=== PATIENT | female | born 1940 | race Caucasian/White ===

== ENCOUNTER 2025-05-18 08:29 | Emergency (ER) | payer OTHER, SELFPAY ==
--- OUTSIDE RECORDS SUMMARY | 2025-05-04 02:28 | XMS_ITS | Continuity of Care Document ---
Author Organization [facility] Address [address] [place] [address] Phone Care Team Providers Care Audience Development Manager Name Role Phone Erick Michaels MD Unavailable Vicenta vailable Allergies, Adverse Reactions, Alerts Substance Reaction Status Criticality No Known Allergies Active No Inform ation Medications Medication Instructions Dosage Effective Dates (start - stop) Status Comments ATORVASTATIN 10MG TABLETS TAKE 1 TABLET BY MOUTH EVERY DAY - Active multivitamin tablet take 1 tablet by oral route every day with food - Active Aspir-81 81 mg tablet,delayed release take 1 Tablet by oral route 2-3 times weekly - Active Joint Health 40 mg-10 mg-5 mg-3.3 mg tablet once daily - Active Healthy Eyes 300 mcg-200 mg-27 mg-2 mg tablet once daily - Active Vitamin D3 25 mcg (1,000 unit) capsule take 1 Capsule by Oral route every day 1 Capsule - Active ATORVASTATIN 10MG TABLETS TAKE 1 TABLET BY MOUTH EVERY DAY - No Longer Active Procedures Procedure Date MED LIST DOCD IN RCRD FALL RISK ASSESSMENT DOC'D PRES/ABSN URINE INCON ASSESS Admin influenza virus vac FLU VACC PRSV FREE INC ANTIG OFFICE [id number] BODY MASS INDEX DOCD SYST BP LT 130 MM HG DIAST BP < 80 MM HG COMPREHEN METABOLIC PANEL CMP LIPID PANEL ROUTINE VENIPUNCTURE MED LIST DOCD IN RCRD FALL RISK ASSESSMENT DOC'D PRES/ABSN URINE INCON ASSESS Pt inelig neg scrn depres OFFICE [id number] BODY MASS INDEX DOCD SYST BP GE 130 - 139MM HG DIAST BP < 80 MM HG Kept Appointment No Charge Encounter Mar Admin influenza virus vac RIV3 VACCINE NO PRESERV IM OFFICE [id number] BODY MASS INDEX DOCD SYST BP LT 130 MM HG DIAST BP < 80 MM HG COMPREHEN METABOLIC PANEL CMP LIPID PANEL ROUTINE VENIPUNCTURE Pt inelig neg scrn depres FALL RISK ASSESSMENT DOC'D PRES/ABSN URINE INCON ASSESS OFFICE [id number] BODY MASS INDEX DOCD SYST BP GE 130 - 139MM HG DIAST BP 80-89 MM HG FALL RISK ASSESSMENT DOC'D PRES/ABSN URINE INCON ASSESS PPPS, subseq visit BODY MASS INDEX DOCD SYST BP GE 130 - 139MM HG DIAST BP < 80 MM HG CBC, INC PLATELETS AND DIFFERENTIAL COMPREHEN METABOLIC PANEL CMP 3 LIPID PANEL URINALYSIS W MICROSCOPIC (UA) 3 ROUTINE VENIPUNCTURE Admin influenza virus vac Flu Vac, quad (RIV4), Preservative And A ntibiotic Free IM FALL RISK ASSESSMENT DOC'D Pt inelig neg scrn depres PPPS, subseq visit BODY MASS INDEX DOCD SYST BP LT 130 MM HG DIAST BP < 80 MM HG COMPREHEN METABOLIC PANEL CMP 2 LIPID PANEL ROUTINE VENIPUNCTURE IL Pt inelig neg scrn depres FALL RISK ASSESSMENT DOC'D PRES/ABSN URINE INCON ASSESS Admin influenza virus vac Flu Vac, quad (RIV4), Preservative And A ntibiotic Free IM OFFICE [id number] BODY MASS INDEX DOCD SYST BP LT 130 MM HG DIAST BP < 80 MM HG DSCHRG MED/CURRENT MED MERGE DSCHRG MED/CURRENT MED MERGE Pt inelig neg scrn depres FALL RISK ASSESSMENT DOC'D PRES/ABSN URINE INCON ASSESS CBC, INC PLATELETS AND DIFFERENTIAL COMPREHEN METABOLIC PANEL CMP 0 LIPID PANEL ROUTINE VENIPUNCTURE PPPS, subseq visit BODY MASS INDEX DOCD SYST BP LT 130 MM HG DIAST BP < 80 MM HG Additional supplies, materials, & Clinic al Staff Time During A PHE Admin influenza virus vac Flu Vac, quad (RIV4), Preservative And A ntibiotic Free IM Pt inelig neg scrn depres FALL PLAN OF CARE DOC'D URINE INCON PLAN DOC'D PRES/ABSN URINE INCON ASSESS PNEUMOVAX ADM MEDICARE PNEUMOCOCCAL CONJUGATE VACCINE, 13 VÍCTOR T, IM PPPS, initial visit BODY MASS INDEX DOCD SYST BP LT 130 MM HG DIAST BP < 80 MM HG CBC, INC PLATELETS AND DIFFERENTIAL COMPREHEN METABOLIC PANEL CMP 9 LDL-CHOLESTEROL, DIRECT VITAMIN D, 25-HYDROXY ROUTINE VENIPUNCTURE Admin influenza virus vac FLU VAC NO PRSV 4 MELO, 0.5mL DOSAGE Advance Directives Directive Yes / No Effective Date File Name No Information Encounters Encounter Description Practice Location Reason(s) For Visit Diagnoses Date Provider Providers Copied on Encounter [facility], [address], [place], [place], [address] , [place] tel: [phone] [facility] No Information 5 Brando Walters. [address], [place] [address], [place], [place], [address], [place]. tel:[phone] OFFICE [id number]-LG [facility], [address], [place], [place], [address] , [place] tel:[phone] [facility] Chronic Conditions (chief complaint) Body mass index [BMI] 19.9 or less, adultAtherosc lerosis of aortaHistory of malignant neoplasm of breastGeneral ized osteoarthriti sMixed hyperlipidemi aOsteopenia after menopausePain , joint, shoulder, rightPelvic floor dysfunction 5 Brando Walters. [address], [place] [address], [place], [place], [address], [place]. tel:[phone] Referring Provider: Erick paz, [address] [place] [address], [place], [address] . tel:[phone] [facility], [address], [place], [place], [address] , [place] [phone] [facility] No Information 5 Brando Walters. [address], [place] [address], [place], [place], [address], [place]. tel:[phone] OFFICE [id number]-UG [facility], [address], [place], [place], [address] , tel:[phone] [facility] follow up (chief complaint) Body mass index [BMI] 20.0-20.9, adultOsteopen ia after menopauseActi yesica keratosisGene ralized osteoarthriti sUterine prolapseAther osclerosis of aortaPure hypercholeste rolemia, unspecifiedHi story of malignant neoplasm of breastVaccine counseling 5 Brando Walters. [address] [place] [address], [place] [address], [place], [place], [address], [place]. [phone] Referring Provider: Erick paz, [facility] [address], [place], [address] . tel:[phone] [facility], [address], [place], [place], [address] , [place] tel: [phone] [facility] UA (chief complaint) No Information 4 Lizeth Glass. [address] [place] [address], [id number], [place]. tel:[phone] Referring Provider: Quan Stanley , [address] [place] [address], [address] . tel:[phone] [facility], [address], [place], [place], [address] , [place] tel:[phone] Administratio n Hematuria, unspecified type 4 Lizeth Glass. [address] [place] [address], [id number], [place]. tel:[phone] [facility], [address], [place], [place], [address] , [place] [phone] [facility] Hematuria, unspecified type 4 Lizeth Glass. [address] [place] [address], [id number], [place]. tel:[phone] Referring Provider: Quan Stanley , [address] [place] [address], [address] . tel:[phone] OFFICE FZFIB-CDU-ON PANDSHREYA [facility], [address], [place], [place], [address] , tel:[phone] [facility] Chronic Conditions (chief complaint)b ereavement (chief complaint) Atheroscleros is of aortaPure hypercholeste rolemia, unspecifiedUn ilateral primary osteoarthriti s, right hipBody mass index [BMI] 19.9 or less, adultEncounte r for immunization 4 Lizeth Glass. [address] [place] [address], [id number], . tel:[phone] Referring Provider: Quan Stanley , [address] [place] [address], [address] . tel:[phone] OFFICE [id number]-GF [facility], [address], [place], [place], [address] , tel:[phone] [facility] Chronic Conditions (chief complaint) Unilateral primary osteoarthriti s, right hipSquamous cell carcinoma of skin, unspecifiedBo dy mass index [BMI] 20.0-20.9, adult 4 Lizeth Glass. [address] [place] [address], [id number], . tel:[phone] Referring Provider: Quan Stanley , [address] [place] [address], [address] . tel:[phone] [facility], [address], [place], [place], [address] , tel:[phone] [facility] Medicare preventive (chief complaint)C hronic Conditions (chief complaint)c hronic conditions (chief complaint) Encntr for general adult medical exam w/o abnormal findingsAther osclerosis of aortaPure hypercholeste rolemiaOther specified disorders of bone density and structure, unspecified siteNonalcoho lic steatohepatit is (GONZALEZ)Skin changeHistory of malignant neoplasm of breastRight hip painUrinary incontinence, unspecified typeBody mass index [BMI] 19.9 or less, adult 3 Lili Yu. [address], [place], [place], [address], [place]. tel:[phone] Referring Provider: Quan Stanley , [address] [place] [address], [address] . tel:[phone] [facility], [address], [place], [place], [address] , [place] tel:[phone] [facility] flu vaccine (chief complaint) No Information 2 Lizeth Glass. [address] [place] [address], [id number], [place]. [phone] Referring Provider: Quan Stanley , [address] [place] [address], [address] . tel:[phone] [facility], [address], [place], [place], [address] , [place] tel:[phone] [facility] Medicare preventive (chief complaint)C hronic Conditions (chief complaint) Body mass index [BMI] 20.0-20.9, adultAtherosc lerosis of aortaHistory of malignant neoplasm of breastEncount er for adult health maintenance exam without abnormal findingActini c keratosisPure hypercholeste rolemia, unspecified 2 Lizeth Glass. [address] [place] [address], [id number], [place]. tel:[phone] Referring Provider: Quan Stanley , [address] [place] [address], [address] . tel:[phone] [facility], [address], [place], [place], [address] , [place] tel:[phone] Administratio n No Information 2 Lizeth Glass. [address] [place] [address], [id number], [place]. tel:[phone] OFFICE [id number]-FN TAILED [facility], [address], [place], [place], [address] , [place] tel:[phone] [facility] Rash (chief complaint)C hronic Conditions (chief complaint) Body mass index [BMI] 19.9 or less, adultDermatit isAtheroscler osis of aortaPure hypercholeste rolemia, unspecifiedBo dy mass index [BMI] 20.0-20.9, adult Mar- 1 Lili Yu. [address], [place], [place], [address], [place]. tel:[phone] Referring Provider: Quan Stanley , [address] [place] [address], [address] . tel:[phone] [facility], [address], [place], [place], [address] , tel: [phone] [facility] No Information 1 Lizeth Glass. [address] [place] [address], [id number], . tel:[phone] Referring Provider: Quan Stanley , [address] [place] [address], [address] . tel:[phone] [facility], [address], [place], [place], [address] , tel: [phone] [facility] No Information 1 Lizeth Glass. [address] [place] [address], [id number], . tel:[phone] Referring Provider: Quan Stanley , [address] [place] [address], [address] . tel:[phone] [facility], [address], [place], [place], [address] , [place] tel:[phone] [facility] Polyosteoarth ritis, unspecified 1 Lizeth Glass. [address] [place] [address], [id number], . tel:[phone] [facility], [address], [place], [place], [address] , tel:[phone] [facility] No Information 1 Lizeth Glass. [address] [place] [address], [id number], . tel:[phone] [facility], [address], [place], [place], [address] , tel: [phone] [facility] follow up (chief complaint)M edicare preventive (chief complaint)C hronic Conditions (chief complaint) Body mass index (BMI) 20.0-20.9, adultPolyoste oarthritis, unspecifiedAt herosclerosis of aortaHistory of malignant neoplasm of breastEncount er for general adult medical examination without abnormal findingsImmun ization counseling 0 Lizeth Glass. [address] [place] [address], [id number], . tel:[phone] Referring Provider: Quan Stanley , [address] [place] [address], [address] . tel:[phone] [facility], [address], [place], [place], [address] , tel:[phone] [facility] Encounter for screening for malignant neoplasm of colon 0 Lizeth Glass. [address] [place] [address], [id number], . tel:[phone] Referring Provider: Quan Stanley , [address] [place] [address], [address] . tel:[phone] [facility], [address], [place], [place], [address] , [place] tel:[phone] [facility] No Information 0 Lizeth Glass. [address] [place] [address], [id number], [place]. tel:[phone] Referring Provider: Quan Stanley , [address] [place] [address], [address] . tel:[phone] [facility], [address], [place], [place], [address] , tel:[phone] [facility] Medicare preventive (chief complaint)C hronic Conditions (chief complaint) Encounter for general adult medical examination without abnormal findingsEncou nter for immunizationA therosclerosi s of aortaFatty liverOsteopen ia, unspecified locationPure hypercholeste rolemiaHistor y of malignant neoplasm of breastPrimary osteoarthriti s involving multiple joints 9 Lili Aimee. [address] [place] [address], [place], [place], [address], [place]. tel:[phone] Referring Provider: Quan Stanley , [address] [place] [address], [address] . tel:[phone] [facility], [address], [place], [place], [address] , [place] tel: [phone] [facility] No Information 9 Lizeth Glass. [address] [place] [address], [id number], [place]. tel:[phone] Referring Provider: Quan Stanley , [address] [place] [address], [address] . tel:[phone] [facility], [address], [place], [place], [address] , [place] tel:[phone] [facility] Body mass index (BMI) 21.0-21.9, adultPolyoste oarthritis, unspecified 9 Lili Yu. [address], [place] [address], [place], [place], [address], [place]. tel:[phone] Referring Provider: Quan Stanley , [address] [place] [address], [address] . tel:[phone] [employer] [facility], [address], [place], [place], [address] , [place] tel:[phone] [facility] Body mass index (BMI) 21.0-21.9, adult Fe 9 Lili Yu. [address], [place] [address], [place], [place], [address], [place]. tel:[phone] Referring Provider: Quan Stanley , [address] [place] [address], [address] . tel:[phone] [facility], [address], [place], [place], [address] , tel:[phone] [facility] No Information 0 8 Lizeth Glass. [address] [place] [address], [id number], . [phone] Referring Provider: Quan Stanley , [address] [place] [address], [address] . tel:[phone] [facility], [address], [place], [place], [address] , tel:[phone] [facility] Left hip painPrimary osteoarthriti s, right shoulder 8 Lizeth Glass. [address] [place] [id number], . [phone] [facility], [address], [place], [place], [address] , tel:[phone] [facility] Body mass index (BMI) 20.0-20.9, adultPrimary osteoarthriti s, right shoulderLeft hip pain 8 Lizeth Glass. [address] [place] [address], [id number], . tel:[phone] Referring Provider: Quan Stanley , [address] [place] [address], [address] . tel:[phone] [facility], [address], [place], [place], [address] , tel:[phone] [facility] Polyosteoarth ritis, unspecifiedAt herosclerosis of aortaPersonal history of malignant neoplasm of breast 8 Lizeth Glass. [address] [place] [address], [id number], . tel:[phone] Referring Provider: Quan Stanley , [address] [place] [address], [address] . tel:[phone] [facility], [address], [place], [place], [address] , tel: [phone] [facility] No Information Lizeth Glass. [address] [place] [address], [id number], . tel:[phone] Referring Provider: Quan Stanley , [address] [place] [address], [address] . tel:[phone] [facility], [address], [place], [place], [address] , tel: [phone] [facility] Other specified disorders of bone density and structure, unspecified siteAtheroscl erosis of aortaPolyoste oarthritis, unspecified Lizeth Glass. [address] [place] [address], [id number], . tel:[phone] Referring Provider: Quan Stanley , [address] [place] [address], [address] . tel:[phone] [facility], [address], [place], [place], [address] , tel: [phone] [facility] Osteoporosis screening Lizeth Glass. [address] [place] [address], [id number], . tel:[phone] [facility], [address], [place], [place], [address] , [place] tel: [phone] [facility] Pneumonia of left lower lobe due to infectious organismAther osclerosis of aortaFemale bladder prolapseDerma titisPost-tanner al dripMyalgia Lili Yu. [address] [facility], [place], [place], [address], [place]. tel:[phone] Referring Provider: Quan Stanley , [address] [place] [address], [address] . tel:[phone] [facility], [address], [place], [place], [address] , tel: [phone] [facility] Pneumonia of left lower lobe due to infectious organismAther osclerosis of aorta Dec-2 0-201 6 Lizeth Glass. [address] [place] [address], [id number], [place]. tel:[phone] Referring Provider: Quan Stanley , [address] [place] [address], [address] . tel:[phone] [facility], [address], [place], [place], [address] , tel: [phone] [facility] Pneumonia of left lower lobe due to infectious organismFemal e bladder prolapseSkin yeast infection May-0 6-201 6 Lili Yu. [address] [facility], [place], [place], [address], [place]. tel:[phone] Referring Provider: Quan Stanley , [address] [place] [address], [address] . tel:[phone] [facility], [address], [place], [place], [address] , [place] tel:[phone] [facility] Cough May-0 5-201 6 Lizeth Glass. [address] [place] [address], [id number], [place]. tel:[phone] [facility] [address], [place], [place], [address] , [place] tel:[phone] [facility] Periumbilical abdominal painHematuria Apr-0 8-201 6 Lili Yu. [address] [facility], [place], [place], [address], [place]. tel:[phone] Referring Provider: Quan Stanley , [address] [place] [address], [address] . tel:[phone] [facility], [address], [place], [place], [address] , tel: [phone] [facility] Abnormal screening mammogram 0- 6 Lizeth Glass. [address] [place] [address], [id number], . [phone] Referring Provider: Quan Stanley , [address] [place] [address], [address] . tel:[phone] [facility], [address], [place], [place], [address] , tel: [phone] [facility] Urinary frequency Apr- 5 Lizeth Glass. [address] [place] [address], [id number], . tel:[phone] Referring Provider: Quan Stanley , [address] [place] [address], [address] . tel:[phone] [facility], [address], [place], [place], [address] , tel: [phone] [facility] Encntr for general adult medical exam w/o abnormal findingsEncou nter for immunizationP rimary osteoarthriti s, unspecified site 2 5 Lizeth Glass. [address] [place] [address], [id number], . tel:[phone] Referring Provider: Quan Stanley , [address] [place] [address], [address] . tel:[phone] [facility], [address], [place], [place], [address] , [place] tel: [phone] [facility] Screening for malignant neoplasm of colon Feb-- 5 Lizeth Glass. [address] [place] [address], [id number], . tel:[phone] [facility], [address], [place], [place], [address] , [place] tel: [phone] [facility] Routine general medical examination at a [facility] hypercholeste rolemia 4 Lizeth Glass. [address] [place] [address], [id number], [place]. tel:[phone] Referring Provider: Quan Stanley , [address] [place] [address], [address] . tel:[phone] [facility], [address], [place], [place], [address] , [place] tel: [phone] [facility] No Information 3 Lizeth Glass. [address] [place] [address], [id number], [place]. tel:[phone] [facility], [address], [place], [place], [address] , [place] tel: [phone] [facility] Routine general medical examination at a [facility] hypercholeste rolemiaRoutin e general medical examination at a health care facility 3 Lizeth Glass. [address] [place] [address], [id number], [place]. tel:[phone] Referring Provider: Quan Stanley , [address] [place] [address], [address] . tel:[phone] [facility], [address], [place], [place], [address] , [place] tel: [phone] [facility] No Information 2 Kamar Arroyo. [address], [place], [place], [address]. tel:[phone] [facility], [address], [place], [place], [address] , [place] tel: [phone] [facility] No Information 2 Lizeth Glass. [address] [place] [address], [id number], [place]. tel:[phone] [facility], [address], [place], [place], [address] , [place] tel: [phone] [facility] Routine general medical examination at a health care facilityPure hypercholeste rolemiaRoutin e general medical examination at a health care facilityNeed for prophylactic vaccination and inoculation against streptococcus pneumoniae [pneumococcus ]NEED FOR PROPHYLACTIC VACCINATION WITH COMBINED DIPHTHERIA-TE TANUS-PERTUSS IS (DTP) (DTAP) VACCINE 2 Lizeth Glass. [address] [place] [address], [id number], . [phone] Referring Provider: Quan Stanley , [address] [place] [address], [address] . tel:[phone] [facility], [address], [place], [place], [address] , tel: [phone] [facility] No Information 1 Kamar Arroyo. [address], [place], [place], [address]. [phone] [facility], [address], [place], [place], [address] , [place] tel: [phone] [facility] PURE HYPERCHOLESTE ROLEMOSTEOPOR OSIS NOSROUTINE MEDICAL EXAM 9 Lizeth Glass. [address] [place] [address], [id number], . tel:[phone] [facility], [address], [place], [address] , tel: [phone] [facility] LOWER LEG INJURY NOSSEBACEOUS CYST 5 Lizeth Glass. [address] [place] [address], [id number], [place]. [phone] Family History Family Member Type Diagnosis Age At Onset Father Problem (finding) alcoholism Sister Problem (finding) diabetes melli tus in first degree relative Brother Problem (finding) hypertension Mother Problem (finding) Peripheral vascular dis ease Father Problem (finding) malignant neoplasm of l bhavesh Problem (finding) Family history of Diabe jasmine mellitus Sister Problem (finding) hypertension grandparebs Problem (finding) malignant neoplasm of l bhavesh Problem (finding) Family history of alzhe akash's disease Sister Problem (finding) malignant neop lasm of breast in first degree relative 70 Immunizations Vaccine Date Status Comments Fluzone High-Dose Trivalent, preservative free administered Source: New Immuniza tion Record Flublok, Trivalent, preservative free, 18+ yrs, 0.5mL dosage administered Source: New Immuniza tion Record Pfizer Comirnaty tri-sucrose COVID Vaccine 30 mcg/0.3 mL dose, 12+ years administered Source: Other Provid er Flublok, quadrivalent, preservative free, 0.5mL dosage administered Source: Other Provid er Flublok, quadrivalent, preservative free, 0.5mL dosage administered Source: New Immuniza tion Record Pfizer (Diluent Reconstitute d) COVID19 Vaccine, 0.3mL per dose, 2 doses, administered 21 days apart administered Source: Other Provid er Flublok, quadrivalent, preservative free, 0.5mL dosage administered Source: New Immuniza tion Record SHINGRIX (Zoster vaccine recombinant, adjuvanted) administered Source: Other P rovider Pfizer-BioNTech COVID19 Vaccine, 0.3mL per dose, 2 doses, administered 21 days apart administered Source: Source Unspe cified Pfizer-BioNTech COVID19 Vaccine, 0.3mL per dose, 2 doses, administered 21 days apart administered Source: Source Unspe cified SHINGRIX (Zoster vaccine recombinant, adjuvanted) administered Source: Other P rovider Flublok, quadrivalent, preservative free, 0.5mL dosage administered Source: New Immuniza tion Record Pneumococcal conjugate PCV 13 administere d Source: New Immunization Record Fluzone-Flulaval Quad, preservative free, split virus, 0.5mL dosage administered Source: New Immuniza tion Record Flublok, quadrivalent, preservative free, 0.5mL dosage administered Source: New Immuniza tion Record Fluzone Quad , spli t virus, 0.5mL dosage administered Source: New Immuniza tion Record Influenza, injectable, quadrivalent, preservative free, 3 yrs or older administered Source: Other Provi danilo Influenza, seasonal, injectable (3 yrs or older) administered Source: New Immunization Record flu (split) (3 yrs or older) administered Source: Other Provider flu (split) (3 yrs or older) administered Source: Other Registry Zoster administered Source: Other R egistry Tdap administered Source: New Imm unization Record Pneumo (2 yrs or older) (PPV23) administered Source: New Immuniza tion Record flu (split) (3 yrs or older) administered Source: Other Registry 37421 - TD administered Source: Source Unspecified Payers Payer name Insurance type Covered libertarian ID Authoriza tion(s) [employer] MB [id number] [employer] MB [id number] [employer] MB [id number] [employer] MB [id number] [employer] MB [id number] [employer] MB [id number] [employer] MB [id number] [employer] MB [id number] [employer] MB [id number] [employer] MB [id number] [employer] MB [id number] Social History Type Description Quantity Date Captured Comments Sex Female Smoking Status No Information Sexual Orientation Straight or heterosexual Gender Identity Female Chief Complaint And Reason For Visit No Information Reason For Referral Reason For Referral No Information Plan Of Treatment Date Type Action Status Goal Dietary manageme nt education, guidance, and counseling completed Goal Dietary manageme nt education, guidance, and counseling completed Goal Dietary manageme nt education, guidance, and counseling completed Goal Dietary manageme nt education, guidance, and counseling completed Goal Dietary manageme nt education, guidance, and counseling completed Goal Dietary manageme nt education, guidance, and counseling completed Mar-24-2025 Referral Referred To: [address] [place], [address] [phone] Ordered: DEXA scan axial skeleton ordered Referral Referred To: Yusra Vargas MD [address] [place], [address] [phone] Ordered: Referrals: Dermatology. Yusra Vargas MD. Evaluation/diagnostic/treatment - Level 3 Appointment date/timeframe: 12/23/2023 ordered Referral Referred To: Dontrell Zapata Jr [address] [place], [place], [id number] [phone] Ordered: Referrals: Dermatology. Dontrell Zapata Jr. Evaluation/diagnostic/treatment - Level 3 Appointment date/timeframe: 06/21/2023 ordered Referral Referred To: Conrado Hayward [address] [place], [address] [phone] Ordered: Referrals: Orthopedic Surgery. Conrado Hayward. Evaluation/diagnostic/treatment - Level 3 Appointment date/timeframe: 05/25/2023 ordered Referral Ordered: Screening mammography of both breasts ordered Appointment Nia Ivan BOOKED Patient Education Uterine Prolapse: Care Instructions completed History Of Present Illness Encounter Date Complaint History Of Prese nt Illness Chronic Conditions 83-year-old lee valle presents to the clinic for follow-up care. Atherosclerosis- on aspirin and statin- no chest pain History of breast cancer- no new issues Osteoarthritis- reports that her right shoulder is her primary concern, continues to maintain her 5 acre property, continues to driveHistory of skin cancer basal/squamous- no new lesions- follow-up is plannedHypercholesterolemia- Continues to take statin, no complaints Osteopenia s can last done in 2019- continues to take vitamins and calcium Right shoulder pain- limits her driving, unable to abductProlapse- has urinary leakage, reports that there is protrusion, difficulty holding urine. 6 Month follow-up follow up 83-year-old antonella jonas presents to the clinic for follow-up care. She was last seen in the office February 2024.Chronic conditions include:Atherosclerosis- on aspirin and statin History of breast cancer- no complaints Osteoarthritis- complaints of pain in the knee, hip, and shoulderHistory of skin cancer basal/squamous- has seen a public health registrar in the past. Has a new lesion on the scalpHypercholesterolemia- Continues to take statin Osteopenia s can last done in 2018- continues to take vitaminsHistory of TY in 2020- continues to have pain in the hip UA bereavement It has been 1 ye ar since the of her . She remains on the farm with all of their stuff. She is now resolved to start clearing out some of his things. She is considering having an option. She cried as she related the anniversary but reports she is doing relatively well. She and her sister go out. She does not feel lonely. Chronic Conditions *See Chronic Conditions HPI Chronic Conditions *See Chronic Conditions HPI Medicare preventive Recently, th e patient has felt down, depressed or hopeless and has felt little interest or pleasure in doing things. Functional status assessed on 05/06/2019. Cognitive Status: (Cognitive status has not changed) on 04/23/2023. The patient has not fallen in the last year. The fall(s) did not result in injury. Patient's activity level is moderate. Patient exercises 2-3 times/week. The patient has firearms, electric heating in the home. The patient does not have smoke detectors, carbon monoxide detectors in the home. Patient reports using a seatbelt in vehicles. Patient reports a healthy diet. Patient reports recent weight loss. Relevant history is negative for passive smoke exposure and alcohol use. Patient is a former tobacco user. Screening services were reviewed and updated. Comments: Sherwin lam presents for Medicare physical. Medicare Wellness Check Up Form completed, reviewed with pt and scanned into EHR.She reports managing her grief well since her 's . She has a strong support in her sister. chronic conditions *See Chronic Conditions HPI Chronic Conditions *See Chronic Conditions HPI flu vaccine Medicare preventive A Health Ris k Assessment has been performed and reviewed. The patient has not felt depressed and has had interest and pleasure doing things recently. Functional status assessed on 05/06/2019. Cognitive status assessed on 05/06/2019. The ''Up and Go'' test took less than 30 seconds and the patient does not need help with activities of daily living. The patient is not at risk for falls. The patient has fallen 1 times in the last year. The fall(s) did not result in injury. Patient's activity level is moderate. Patient exercises 2-3 times/week. The patient has firearms, electric heating in the home. The patient does not have smoke detectors, carbon monoxide detectors in the home. Patient reports using a seatbelt in vehicles. Patient reports a healthy diet. Patient denies recent weight gain. Patient reports recent weight loss. Patient does not take calcium. Patient reports not taking Vitamin D. Patient does not take a multivitamin. Patient does not take folic acid. Relevant history is positive for passive smoke exposure and alcohol use. Patient is a former tobacco user. Chronic Conditions *See Chronic Conditions HPI Chronic Conditions *See Chronic Conditions HPI Rash Pt reports red b umps to left face that began on 03/31/21. She began the valacyclovir. The papular rash is red ad itchy. She has been gardening but is not aware of exposure to irritant. There is no pain. The scalp skin involvement. No ear involvement. Chronic Conditions *See Chronic Conditions HPI follow up Medicare preventive A Health Ris k Assessment has been performed and reviewed. The patient has not felt depressed and has had interest and pleasure doing things recently. Functional status assessed on 05/06/2019. Cognitive status assessed on 05/06/2019. The ''Up and Go'' test took less than 30 seconds and the patient does not need help with activities of daily living. The patient is not at risk for falls. The patient has not fallen in the last year. The fall(s) did not result in injury. Patient's activity level is moderate. Patient exercises 2-3 times/week. The patient has firearms, electric heating in the home. The patient does not have smoke detectors, carbon monoxide detectors in the home. Patient reports using a seatbelt in vehicles. Patient reports a healthy diet. Patient does not take calcium. Patient reports not taking Vitamin D. Patient does not take a multivitamin. Patient does not take folic acid. Relevant history is positive for passive smoke exposure and alcohol use. Patient is a former tobacco user. Medicare preventive The patient has not felt depressed and has had interest and pleasure doing things recently. Functional Status: (Functional status has not changed) on 05/06/2019. Cognitive Status: (Cognitive status has not changed) on 05/06/2019. The ''Up and Go'' test took less than 30 seconds and the patient does not need help with activities of daily living. The patient is not at risk for falls. The patient has not fallen in the last year. The fall(s) did not result in injury. Patient's activity level is moderate. Patient exercises 2-3 times/week. The patient has firearms, electric heating in the home. The patient does not have smoke detectors, carbon monoxide detectors in the home. Patient reports using a seatbelt in vehicles. Patient reports a healthy diet. Patient reports recent weight gain of 3 lbs, 1.36 kgs over 6 Months. Patient denies recent weight loss. Patient does not take calcium. Patient reports not taking Vitamin D. Patient does not take a multivitamin. Patient does not take folic acid. Relevant history is positive for passive smoke exposure and alcohol use. Patient is a former tobacco user. Screening services were reviewed and updated. Chronic Conditions *See Chronic Conditions HPI Medicare preventive (comments) P atient presents for Medicare physical. Medicare Wellness Check Up Form completed, reviewed with pt and scanned into EHR.Pt had Shingles in 2018. We discussed the Shingrix vaccine due in 2020. Functional Status Date Functional Assessmen t No Information Instructions Date Instruction Additional Infor mation I will print out inf ormation regrading prolapse and the sling procedure. I recommend Sammi Larose MD. Related to Pelvic floor dysfunction This is likely relat ed to osteoarthritis of the shoulder. Use Tylenol for your painContinue with stretching Related to Pain, joint, shoulder, right Continue with vitami n D and calcium Related to Osteopenia after menopause Continue with atorvastatin Relat ed to Mixed hyperlipidemia Follow-up with tatianna ryan in March Biopsy was cancerous and will follow-up with specialist I encourage sun screening Related to History of malignant neoplasm of breast Continue with Tyleno l for pain control Related to Generalized osteoarthritis No medication change s with aspirin and statin Related to Atherosclerosis of aorta Dietary management e ducation, guidance, and counseling Related to Body mass index (BMI) 19 or less, adult I recommend an RSV v accine I sent an order to your pharmacy Related to Vaccine counseling No changes at this t carissa, continue with current management Related to History of malignant neoplasm of breast Continue with statin Related to Pure hypercholesterolemia, unspecified Continue with aspirin and statin Related to Atherosclerosis of aorta Continue with calciu m and vitamin D I recommend getting a DEXA scan Related to Osteopenia after menopause I will print a set o f home care instructions Related to Uterine prolapse I recommend evaluati on with dermatology. Related to Actinic keratosis Continue with Tyleno l as needed Okay to take 1000 mg as needed Related to Generalized osteoarthritis Urinary Incontinence Fall Risk Prevention Dietary management e ducation, guidance, and counseling Related to Body mass index (BMI) 20.0-20.9, adult We gave you an influ chong vaccine today. I recommend you get the updated COVID vaccine at a pharmacy. Related to Encounter for immunization We discussed you rig ht hip arthritis. You are not ready for hip replacement surgery. Related to Unilateral primary osteoarthritis, right hip I recommend you cont inue current medication. Related to Pure hypercholesterolemia, unspecified I recommend you cont inue current medication. I will retire on 06/17/2024. I recommend you make an appointment to see Dr. Lauren Scott for your next visit in a few months. You will need to call [facility] and change your PCP. You can call his office at [phone] for an appointment. His office is located at [address] [place] [address] in [facility] Related to Atherosclerosis of aorta Dietary management e ducation, guidance, and counseling Related to Body mass index (BMI) 19 or less, adult I will send an [facility] referral to Dr. Vargas. Related to Squamous cell carcinoma of skin, unspecified I referred you to Dr Lupis Hayward for your hip pain and hip replacement. Related to Unilateral primary osteoarthritis, right hip UA today. Related to Urina ry incontinence, unspecified type See Dr Hayward. [facility] orthopdics.[phone]. Related to Right hip pain Let e know when you are ready to get a mammogram. Related to History of malignant neoplasm of breast See Dr Dontrell [email or web address] [facility] [address], [place], [place] [id number]: Related to Skin change I reviewed the USPST F Preventive Service Recommendations for your age and gender. Related to Encntr for general adult medical exam w/o abnormal findings Please take your Vit appiah D with food. Related to Other specified disorders of bone density and structure, unspecified site Labs today. 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 No more than 15grams of saturated fat daily.Increase fiber intake to 25 grams per day.Increase exercise to 30 minutes 4x/week. Related to Pure hypercholesterolemia Please continue all medications.Please walk daily and maintain a high fiber diet. Related to Atherosclerosis of aorta Immunizations I recommend you cont inue current medication, atorvastatin. Related to Pure hypercholesterolemia, unspecified I treated the 2 rosalino toses on your face with cryotherapy and discussed care. Related to Actinic keratosis We discussed prevent rom care, including recommendations made by the [place] Preventive Services Task Force appropriate for you. Related to Encounter for adult health maintenance exam without abnormal finding I recommend screenin g mammogram, to screen for breast cancer. Please call [phone] to schedule your mammogram. Related to History of malignant neoplasm of breast I recommend you cont inue current medication. I ordered a blood test for potassium, glucose, liver and kidney function. I ordered a blood test for lipid panel; this measures total, good and bad cholesterol and triglycerides. Related to Atherosclerosis of aorta Dietary management e ducation, guidance, and counseling Related to Body mass index (BMI) 20.0-20.9, adult Please begin hydroco rtisone cream to area. Apply 3 times daily. I also recommend a daily antihistamine cetrizine 10mg (Zyrtec). This is not Shingles. You may stop valacyclovir. Related to Dermatitis Your blood pressure is controlled today.Please continue current medication regimen.Please call PCP or [facility] for BP readings consistently above goal, 130/80 or higher. Do not add salt to your food. Use fresh herbs, lemon or Chronogolf seasonings. Related to Pure hypercholesterolemia, unspecified Please continue all medications.Please walk daily and maintain a high fiber diet. Related to Atherosclerosis of aorta Fall Risk Prevention Urinary Incontinence Dietary management e ducation, guidance, and counseling Related to Body mass index (BMI) 19 or less, adult Disease process I recommend you rece rom the new Shingles/ Zoster vaccine, Shingrix. This is a 2 injection vaccine. It can cause muscle pain. Tylenol usually helps this. Patients with Medicare must get this at a pharmacy. Please contact your pharmacy to arrange your vaccine. Related to Immunization counseling We discussed prevent rom care, including recommendations made by the [place] Preventive Services Task Force appropriate for you. Related to Encounter for general adult medical examination without abnormal findings I recommend screenin g mammogram, to screen for breast cancer. Please call [phone] to schedule your mammogram. Related to History of malignant neoplasm of breast I recommend you cont inue current medication. Related to Atherosclerosis of aorta I recommend you cont inue current medication. Related to Polyosteoarthritis, unspecified Dietary management e ducation, guidance, and counseling Related to Body mass index (BMI) 20.0-20.9, adult Continue meloxicam. Take with food.Please notify the office when you plan to see Dr Maciel again. We will reissue your referral. Related to Primary osteoarthritis involving multiple joints Patient will continu e current medication and diet regimen. No more than 15grams of saturated fat daily.Increase fiber intake to 25 grams per day.Increase exercise to 30 minutes 4x/week. Related to Pure hypercholesterolemia Complete mammogram as ordered. R elated to History of malignant neoplasm of breast Vitamin D level toda y.Continue daily exercise.Complete the bone density test as ordered. Please call [facility] Imaging to complete your bone density scan within 1 month.[phone] or [phone] [facility] Related to Osteopenia, unspecified location Continue medications. Related to Atherosclerosis of aorta Labs today. Related to Fatty liver Prevnar 13 vaccine g iven today. This completes your pneumococcal pneumonia vaccine series. Please apply ice to the injection site as needed for pain. You may take Tylenol, per package directions for pain as well.Please report any reaction to the office immediately. In 2020, I recommend you receive the new Shingles/ Zoster vaccine, Shingrix. This is a 2 injection vaccine. It can cause muscle pain. Tylenol usually helps this. Please receive this from your pharmacy. Related to Encounter for immunization I reviewed the USPST F Preventive Service Recommendations for your age and gender.Please install the home smoke detectors. Related to Encounter for general adult medical examination without abnormal findings Fall Risk Prevention Urinary Incontinence Immunizations Assessments Type Assessment Date No Information Patient Care Teams Name Effective Dates (start - stop) Status Members No Information
--- OUTSIDE RECORDS SUMMARY | 2025-05-04 02:28 | XMS_ITS | Continuity of Care Document ---
Author Organization [employer] Address [address] [place] [address] Phone Care Team Providers Care Stenographer Print Shop Name Role Phone Erick Michaels MD Unavailable [...] FLU VACC PRSV FREE INC ANTIG OFFICE [id number] BODY MASS INDEX DOCD SYST BP LT 130 MM HG DIAST BP < 80 MM HG COMPREHEN METABOLIC PANEL CMP LIPID PANEL ROUTINE VENIPUNCTURE MED LIST DOCD IN RCRD FALL RISK ASSESSMENT DOC'D PRES/ABSN URINE INCON ASSESS Pt inelig neg scrn depres OFFICE [id number] BODY MASS INDEX DOCD SYST BP GE 130 - 139MM HG DIAST BP < 80 MM HG Kept Appointment No Charge Encounter Mar Admin influenza virus vac RIV3 VACCINE NO PRESERV IM OFFICE [id number] BODY MASS INDEX DOCD SYST BP LT 130 MM HG DIAST BP < 80 MM HG COMPREHEN METABOLIC PANEL CMP LIPID PANEL ROUTINE VENIPUNCTURE Pt inelig neg scrn depres FALL RISK ASSESSMENT DOC'D PRES/ABSN URINE INCON ASSESS OFFICE [id number] BODY MASS INDEX DOCD SYST BP GE [...] Preservative And A ntibiotic Free IM OFFICE [id number] BODY MASS INDEX DOCD SYST BP LT [...] Diagnoses Date Provider Providers Copied on Encounter [facility], [address], [place], [place], [address] , [place] tel: [phone] [facility] No Information 5 Brando Walters. [address], [place] [address], [place], [place], [address], [place]. tel:[phone] OFFICE MLDCI-KQL-AC [facility], [address], [place], [place], [address] , [place] tel:[phone] [facility] Chronic Conditions (chief complaint) Body mass index [BMI] 19.9 or less, adultAtherosc lerosis of aortaHistory of malignant neoplasm of breastGeneral ized osteoarthriti sMixed hyperlipidemi aOsteopenia after menopausePain , joint, shoulder, rightPelvic floor dysfunction 5 Brando Walters. [address], [place] [address], [place], [place], [address], [place]. tel:[phone] Referring Provider: Erick paz, [address] [place] [address], [place], [address] . tel:[phone] [facility], [address], [place], [place], [address] , [place] [phone] [facility] No Information 5 Brando Walters. [address], [place] [address], [place], [place], [address], [place]. tel:[phone] OFFICE UIQCI-YIZ-RX [facility], [address], [place], [place], [address] , tel:[phone] [facility] follow up (chief complaint) Body mass index [BMI] 20.0-20.9, adultOsteopen ia after menopauseActi yesica keratosisGene ralized osteoarthriti sUterine prolapseAther osclerosis of aortaPure hypercholeste rolemia, unspecifiedHi story of malignant neoplasm of breastVaccine counseling 5 Brando Walters. [address] [place] [address], [address] [address], [place], [place], [address], [place]. [phone] Referring Provider: Erick paz, [facility] [address], [place], [address] . tel:[phone] [facility], [address], [place], [place], [address] , [place] tel: [phone] [facility] UA (chief complaint) No Information 4 Lizeth Glass. [address] [place] [address], [id number], [place]. tel:[phone] Referring Provider: Quan Stanley , [address] [place] [address], [address] . tel:[phone] [facility], [address], [place], [place], [address] , [place] tel:[phone] Administratio n Hematuria, unspecified type 4 Lizeth Glass. [address] [place] [address], [id number], [place]. tel:[phone] [facility], [address], [place], [place], [address] , [place] [phone] [facility] Hematuria, unspecified type 4 Lizeth Glass. [address] [place] [address], [id number], [place]. tel:[phone] Referring Provider: Quan Stanley , [address] [place] [address], [address] . tel:[phone] OFFICE XHVSE-GZZ-AA PANDSHREYA [facility], [address], [place], [place], [address] , tel:[phone] [facility] Chronic Conditions (chief complaint)b ereavement (chief complaint) Atheroscleros is of aortaPure hypercholeste rolemia, unspecifiedUn ilateral primary osteoarthriti s, right hipBody mass index [BMI] 19.9 or less, adultEncounte r for immunization 4 Lizeth Glass. [address] [place] [address], [id number], . tel:[phone] Referring Provider: Quan Stanley , [address] [place] [address], [address] . tel:[phone] OFFICE ISWZE-FOX-ZT [facility] [employer], [address], [place], [place], [address] , tel:[phone] [facility] Chronic Conditions (chief complaint) Unilateral primary osteoarthriti s, right hipSquamous cell carcinoma of skin, unspecifiedBo dy mass index [BMI] 20.0-20.9, adult 4 Lizeth Glass. [address] [place] [address], [id number], . tel:[phone] Referring Provider: Quan Stanley , [address] [place] [address], [address] . tel:[phone] [employer] [facility], [address], [place], [place], [address] , tel:[phone] [facility] Medicare preventive (chief complaint)C hronic [...] 3 Lili Yu. [address], [place], [place], [address], [place]. tel:[phone] Referring Provider: Quan Stanley , [address] [place] [address], [address] . tel:[phone] [facility], [address], [place], [place], [address] , [place] tel:[phone] [facility] flu vaccine (chief complaint) No Information 2 Lizeth Glass. [address] [place] [address], [id number], [place]. [phone] Referring Provider: Quan Stanley , [address] [place] [address], [address] . tel:[phone] [facility], [address], [place], [place], [address] , [place] tel:[phone] [facility] Medicare preventive (chief complaint)C hronic Conditions (chief complaint) Body mass index [BMI] 20.0-20.9, adultAtherosc lerosis of aortaHistory of malignant neoplasm of breastEncount er for adult health maintenance exam without abnormal findingActini c keratosisPure hypercholeste rolemia, unspecified 2 Lizeth Glass. [address] [place] [address], [id number], [place]. tel:[phone] Referring Provider: Quan Stanley , [address] [place] [address], [address] . tel:[phone] [facility], [address], [place], [place], [address] , [place] tel:[phone] Administratio n No Information 2 Lizeth Glass. [address] [place] [address], [id number], [place]. tel:[phone] OFFICE ZHAOA-UPF-AY TAILED [facility], [address], [place], [place], [address] , [place] tel:[phone] [facility] Rash (chief complaint)C hronic Conditions (chief complaint) Body mass index [BMI] 19.9 or less, adultDermatit isAtheroscler osis of aortaPure hypercholeste rolemia, unspecifiedBo dy mass index [BMI] 20.0-20.9, adult Mar- 1 Lili Yu. [address], [place], [place], [address], [place]. tel:[phone] Referring Provider: Quan Stanley , [address] [place] [address], [address] . tel:[phone] [facility], [address], [place], [place], [address] , tel: [phone] Care Management No Information 1 Lizeth Glass. [address] [place] [address], [id number], . tel:[phone] Referring Provider: Quan Stanley , [address] [place] [address], [address] . tel:[phone] [facility], [address], [place], [place], [address] , tel: [phone] [facility] No Information 1 Lizeth Glass. [address] [place] [address], [id number], . tel:[phone] Referring Provider: Quan Stanley , [address] [place] [address], [address] . tel:[phone] [facility], [address], [place], [place], [address] , [place] tel:[phone] [facility] Polyosteoarth ritis, unspecified 1 Lizeth Glass. [address] [place] [address], [id number], . tel:[phone] [facility], [address], [place], [place], [address] , tel:[phone] [facility] No Information 1 Lizeth Glass. [address] [place] [address], [id number], . tel:[phone] [facility], [address], [place], [place], [address] , tel: [phone] [facility] follow up (chief complaint)M edicare preventive (chief complaint)C hronic Conditions (chief complaint) Body mass index (BMI) 20.0-20.9, adultPolyoste oarthritis, unspecifiedAt herosclerosis of aortaHistory of malignant neoplasm of breastEncount er for general adult medical examination without abnormal findingsImmun ization counseling 0 Lizeth Glass. [address] [place] [address], [id number], . tel:[phone] Referring Provider: Quan Stanley , [address] [place] [address], [address] . tel:[phone] [facility], [address], [place], [place], [address] , tel:[phone] [facility] Encounter for screening for malignant neoplasm of colon 0 Lizeth Glass. [address] [place] [address], [id number], . tel:[phone] Referring Provider: Quan Stanley , [address] [place] [address], [address] . tel:[phone] [facility], [address], [place], [place], [address] , [place] tel:[phone] [facility] No Information 0 Lizeth Glass. [address] [place] [address], [id number], [place]. tel:[phone] Referring Provider: Quan Stanley , [address] [place] [address], [address] . tel:[phone] [facility], [address], [place], [place], [address] , tel:[phone] [facility] Medicare preventive (chief complaint)C hronic Conditions (chief complaint) Encounter for general adult medical examination without abnormal findingsEncou nter for immunizationA therosclerosi s of aortaFatty liverOsteopen ia, unspecified locationPure hypercholeste rolemiaHistor y of malignant neoplasm of breastPrimary osteoarthriti s involving multiple joints 9 Lili Aimee. [address] [place] [address], [place], [place], [address], [place]. tel:[phone] Referring Provider: Quan Stanley , [address] [place] [address], [address] . tel:[phone] [facility], [address], [place], [place], [address] , [place] tel: [phone] [facility] No Information 9 Lizeth Glass. [address] [place] [address], [id number], [place]. tel:[phone] Referring Provider: Quan Stanley , [address] [place] [address], [address] . tel:[phone] [facility], [address], [place], [place], [address] , [place] tel:[phone] [facility] Body mass index (BMI) 21.0-21.9, adultPolyoste oarthritis, unspecified 9 Lili Yu. [address], [place] [address], [place], [place], [address], [place]. tel:[phone] Referring Provider: Quan Stanley , [address] [place] [address], [address] . tel:[phone] [employer] [facility], [address], [place], [place], [address] , [place] tel:[phone] [facility] Body mass index (BMI) 21.0-21.9, adult Fe 9 Lili Yu. [address], [place] [address], [place], [place], [address], [place]. tel:[phone] Referring Provider: Quan Stanley , [address] [place] [address], [address] . tel:[phone] [facility], [address], [place], [place], [address] , tel:[phone] [facility] No Information 0 8 Lizeth Glass. [address] [place] [address], [id number], . [phone] Referring Provider: Quan Stanley , [address] [place] [address], [address] . tel:[phone] [facility], [address], [place], [place], [address] , tel:[phone] [facility] Left hip painPrimary osteoarthriti s, right shoulder 8 Lizeth Glass. [address] [place] [address], [id number], . [phone] [facility], [address], [place], [place], [address] , tel:[phone] [facility] Body mass index (BMI) 20.0-20.9, adultPrimary osteoarthriti s, right shoulderLeft hip pain 8 Lizeth Glass. [address] [place] [address], [id number], . tel:[phone] Referring Provider: Quan Stanley , [address] [place] [address], [address] . tel:[phone] [facility], [address], [place], [place], [address] , tel:[phone] [facility] Polyosteoarth ritis, unspecifiedAt herosclerosis of aortaPersonal history of malignant neoplasm of breast 8 Lizeth Glass. [address] [place] [address], [id number], . tel:[phone] Referring Provider: Quan Stanley , [address] [place] [address], [address] . tel:[phone] [facility], [address], [place], [place], [address] , tel: [phone] [facility] No Information Lizeth Glass. [address] [place] [address], [id number], . tel:[phone] Referring Provider: Quan Stanley , [address] [place] [address], [address] . tel:[phone] [facility], [address], [place], [place], [address] , tel: [phone] [facility] Other specified disorders of bone density and structure, unspecified siteAtheroscl erosis of aortaPolyoste oarthritis, unspecified Lizeth Glass. [address] [place] [address], [id number], . tel:[phone] Referring Provider: Quan Stanley , [address] [place] [address], [address] . tel:[phone] [facility], [address], [place], [place], [address] , tel: [phone] [facility] Osteoporosis screening Lizeth Glass. [address] [place] [address], [id number], . tel:[phone] [facility], [address], [place], [place], [address] , [place] tel: [phone] [facility] Pneumonia of left lower lobe due to infectious organismAther osclerosis of aortaFemale bladder prolapseDerma titisPost-tanner al dripMyalgia Lili Yu. [address], [facility] [address], [place], [place], [address], [place]. tel:[phone] Referring Provider: Quan Stanley , [address] [place] [address], [address] . tel:[phone] [facility], [address], [place], [place], [address] , tel: [phone] [facility] Pneumonia of left lower lobe due to infectious organismAther osclerosis of aorta Dec-2 0-201 6 Lizeth Glass. [address] [place] [address], [id number], [place]. tel:[phone] Referring Provider: Quan Stanley , [address] [place] [address], [address] . tel:[phone] [facility], [address], [place], [place], [address] , tel: [phone] [facility] Pneumonia of left lower lobe due to infectious organismFemal e bladder prolapseSkin yeast infection May-0 6-201 6 Lili Yu. [address], [facility] [address], [place], [place], [address], [place]. tel:[phone] Referring Provider: Quan Stanley , [address] [place] [address], [address] . tel:[phone] [facility], [address], [place], [place], [address] , [place] tel:[phone] [facility] Cough May-0 5-201 6 Lizeth Glass. [address] [place] [address], [id number], [place]. tel:[phone] [facility] [address], [place], [place], [address] , [place] tel:[phone] [facility] Periumbilical abdominal painHematuria Apr-0 8-201 6 Lili Yu. [address], [facility] [address], [place], [place], [address], [place]. tel:[phone] Referring Provider: Quan Stanley , [address] [place] [address], [address] . tel:[phone] [facility], [address], [place], [place], [address] , tel: [phone] [facility] Abnormal screening mammogram 0- 6 Lizeth Glass. [address] [place] [address], [id number], . [phone] Referring Provider: Quan Stanley , [address] [place] [address], [address] . tel:[phone] [facility], [address], [place], [place], [address] , tel: [phone] [facility] Urinary frequency Apr- 5 Lizeth Glass. [address] [place] [address], [id number], . tel:[phone] Referring Provider: Quan Stanley , [address] [place] [address], [address] . tel:[phone] [facility], [address], [place], [place], [address] , tel: [phone] [facility] Encntr for general adult medical exam w/o abnormal findingsEncou nter for immunizationP rimary osteoarthriti s, unspecified site 2 5 Lizeth Glass. [address] [place] [address], [id number], . tel:[phone] Referring Provider: Quan Stanley , [address] [place] [address], [address] . tel:[phone] [facility], [address], [place], [place], [address] , [place] tel: [phone] [facility] Screening for malignant neoplasm of colon Feb-- 5 Lizeth Glass. [address] [place] [address], [id number], . tel:[phone] [facility], [address], [place], [place], [address] , [place] tel: [phone] [facility] Routine general medical examination at a [facility] hypercholeste rolemia 4 Lizeth Glass. [address] [place] [address], [id number], [place]. tel:[phone] Referring Provider: Quan Stanley , [address] [place] [address], [address] . tel:[phone] [facility], [address], [place], [place], [address] , [place] tel: [phone] [facility] No Information 3 Lizeth Glass. [address] [place] [address], [id number], [place]. tel:[phone] [facility], [address], [place], [place], [address] , [place] tel: [phone] [facility] Routine general medical examination at a [facility]elesPure hypercholeste rolemiaRoutin e general medical examination at a health care facility 3 Lizeth Glass. [address] [place] [address], [id number], [place]. tel:[phone] Referring Provider: Quan Stanley , [address] [place] [address], [address] . tel:[phone] [facility], [address], [place], [place], [address] , [place] tel: [phone] [facility] No Information 2 Kamar Arroyo. [address], [place], [place], [address]. tel:[phone] [facility], [address], [place], [place], [address] , [place] tel: [phone] [facility] No Information 2 Lizeth Glass. [address] [place] [address], [id number], [place]. tel:[phone] [facility], [address], [place], [place], [address] , [place] tel: [phone] [facility] Routine general medical examination at a health care facilityPure hypercholeste rolemiaRoutin e general medical examination at a health care facilityNeed for prophylactic vaccination and inoculation against streptococcus pneumoniae [pneumococcus ]NEED FOR PROPHYLACTIC VACCINATION WITH COMBINED DIPHTHERIA-TE TANUS-PERTUSS IS (DTP) (DTAP) VACCINE 2 Lizeth Glass. [address] [place] [address], [id number], . [phone] Referring Provider: Quan Stanley , [address] [place] [address], [address] . tel:[phone] [facility], [address], [place], [place], [address] , tel: [phone] [facility] No Information 1 Kamar Arroyo. [address], [address], [place], [place], [address]. [phone] [facility], [address], [place], [place], [address] , [place] tel: [phone] [facility] PURE HYPERCHOLESTE ROLEMOSTEOPOR OSIS NOSROUTINE MEDICAL EXAM 9 Lizeth Glass. [address] [place] [address], [id number], [place]. tel:[phone] [facility], [address], [place], [place], [address] , tel: [phone] [facility] LOWER LEG INJURY NOSSEBACEOUS CYST 5 Lizeth Glass. [address] [place] [address], [id number], [place]. [phone] Family History Family Member Type Diagnosis Age At Onset Sister Problem (finding) malignant neop lasm of breast in first degree relative 70 Problem (finding) Family history of alzhe akash's disease grandparebs Problem (finding) malignant neoplasm of l bhavesh Sister Problem (finding) hypertension Problem (finding) Family history of Diabe jasmine mellitus Father Problem (finding) malignant neoplasm of l bhavesh Mother Problem (finding) Peripheral vascular dis ease Father Problem (finding) alcoholism Brother Problem (finding) hypertension Sister Problem (finding) diabetes melli tus in first degree relative Immunizations Vaccine Date Status Comments Fluzone High-Dose [...] yrs or older) administered Source: Other Registry 57989 - TD administered Source: Source Unspecified Payers Payer name Insurance type Covered alliance party ID Authoriza tion(s) [employer] MB [id number] [employer] MB [id number] [employer] MB [id number] [employer] MB [id number] [employer] MB [id number] [employer] MB [id number] [employer] MB [id number] [employer] MB [id number] [employer] MB [id number] [employer] MB [id number] [employer] MB [id number] Social History Type Description Quantity Date Captured [...] counseling completed Mar-24-2025 Referral Referred To: [address] [place], [phone] Ordered: DEXA scan axial skeleton ordered Referral Referred To: Yusra Vargas MD [address] [place], [phone] Ordered: Referrals: Dermatology. Yusra Vargas MD. Evaluation/diagnostic/treatment - Level 3 Appointment date/timeframe: 12/23/2023 ordered Referral Referred To: Dontrell Zapata Jr [address] [place], [place], [phone] Ordered: Referrals: Dermatology. Dontrell Zapata Jr. Evaluation/diagnostic/treatment - Level 3 Appointment date/timeframe: 06/21/2023 ordered Referral Referred To: Conrado Hayward [address] [place], [phone] Ordered: Referrals: Orthopedic Surgery. Conrado Hayward. Evaluation/diagnostic/treatment [...] of skin cancer basal/squamous- has seen a aitchbone breaker in the past. Has a new lesion [...] PCP. You can call his office at [phone] for an appointment. His office is located at [address] [place] [address] in [facility] Related to Atherosclerosis of aorta Dietary management e ducation, guidance, and counseling Related to Body mass index (BMI) 19 or less, adult I will send an [facility] referral to Dr. Vargas. Related to Squamous cell carcinoma of skin, unspecified I referred you to Dr Lupis Hayward for your hip pain and hip replacement. Related to Unilateral primary osteoarthritis, right hip UA today. Related to Urina ry incontinence, unspecified type See Dr Hayward. [facility] orthopdics.[phone]. Related to Right hip pain Let e know when you are ready to get a mammogram. Related to History of malignant neoplasm of breast See Dr Dontrell [email or web address] [facility] [address], [place], [place] [id number]: Related to Skin change I reviewed the [...] to screen for breast cancer. Please call [phone] to schedule your mammogram. Related to History [...] continue current medication regimen.Please call PCP or MENTAL HEALTH WORKER for BP readings consistently above goal, 130/80 or higher. Do not add salt to your food. Use fresh herbs, lemon or [employer] seasonings. Related to Pure hypercholesterolemia, unspecified Please [...] to screen for breast cancer. Please call [phone] to schedule your mammogram. Related to History [...] bone density test as ordered. Please call [facility] Imaging to complete your bone density scan within 1 month.[phone] or [phone] [facility] Related to Osteopenia, unspecified location Continue [...]
[2025-05-18 08:46] VITALS: BP 150/66; PULSE 84; RESP 20; TEMP 36.6; O2SAT 99
--- OUTSIDE RECORDS SUMMARY | 2025-05-18 08:47 | XMS_ITS | Encounter Summary ---
Author Organization [facility] Address [address] [facility] [place] [address] Care Team Providers Care Pit Operator Name Role Phone Quan Stanley MD Primary Care Provider + Encounter Details Date Type Department Care Team (Late st Contact Info) Description 06/22/2023 Lab Requisition [facility] - DermPath Lab [address] [facility], [place] [phone] Dontrell Zapata Jr., MD [address] [facility] [address] [place] [address] Social History Tobacco Use Types Packs/Day Years Used Date Smoking Tobacco: Passive Smo ke Exposure - Never Smoker Smokeless Tobacco: Never Alcohol Use Standard Drinks/Week Comments No 0 (1 standard drink = 0.6 oz pur e alcohol) PHQ-2 Answer Date Recorded Patient Health Questionnaire-2 Score 0 05/25/2023 Comments No Sex and Gender Information Value Date Recorded Sex Assigned at Not on file Legal Sex Female 6:28 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 Answer Date of Assessment Author No 02/08/2021 12:20 PM Di Quezada RN * Is person blind or have serious difficulty seeing? Answer Date of Assessment Author No 02/08/2021 12:20 PM Di Quezada RN * Does person have serious difficulty walking/climbing stairs? Answer Date of Assessment Author Yes 02/08/2021 12:20 PM Di Quezada RN * Does person have difficulty dressing/bathing? Answer Date of Assessment Author Yes 02/08/2021 12:20 PM Di Quezada RN * Does person have difficulty doing errands alone? Answer Date of Assessment Author Yes 02/08/2021 12:20 PM Di Quezada RN documented as of this encounter Mental Status * Does person have difficulty concentrating/remembering/making decisions? Answer Entry Date Author No 02/08/2021 12:20 PM Di Quezada RN documented in this encounter Plan of Treatment Not on file documented as of this encounter Procedures Procedure Name Priority Date/Time Associated Diagnosis Comments DERMATOPATHOLOGY Routine 06/21/2023 3:33 AM TERRAZZO ROLLER documented in this encounter Results * DERMATOPATHOLOGY (06/21/2023 3:33 AM TERRAZZO ROLLER) Case Report Dermatopathology Report Case: [id number] Authorizing Provider: Dontrell Zapata Jr., MD Collected: 06/21/2023 03:33 AM Ordering Location: [facility] DermPath Lab Received: 06/22/2023 08:01 AM Pathologist: Misti Taylor MD Specimen: Skin, left superior lateral malar cheek 4 2:15 PM [facility] DERMATOPATHOLOGY LABORATORY Final Diagnosis Specimen A. 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 Actinic Keratosis 4 2:15 PM [facility] DERMATOPATHOLOGY LABORATORY Gross Description Specimen A: Received is one formalin filled container labeled with the patient's name and designated left superior lateral malar cheek. The specimen consists of a shave biopsy measuring 5x5x2 mm. Jar 0. 4 2:15 PM [facility] DERMATOPATHOLOGY LABORATORY Microscopic Description Specimen A. SKIN, left superior lateral malar cheek: The epidermis shows parakeratosis, full thickness disorderly maturation of keratinocytes, mitoses at different levels, and dyskeratotic cells. The lesion extends to the base of the biopsy. COMMENT: An invasive squamous cell carcinoma cannot be ruled out. 4 2:15 PM [facility] DERMATOPATHOLOGY LABORATORY Disclaimer An external and internal positive and negative controls are appropriate for the histochemical, immunohistochemical and immunofluorescence stain(s) in this case (if any), except where stated explicitly. The performance characteristics of the stain(s) cited in this report were developed and its performance characteristic determined by the Dermatopathology Laboratory at [facility], directed by Dr. Jules Diaz. These tests need not be, and therefore are not, approved by the [place] Food and Drug Administration. The tests are used for clinical purposes. Billing Codes Specimen Charges Stain Charges 09891 1 4 2:15 PM [facility] DERMATOPATHOLOGY LABORATORY Embedded Images 4 2:15 PM [facility] DERMATOPATHOLOGY LABORATORY Pathology/Cytolo gy TISSUE SPECIMEN FROM SKIN / Unknown 06/21/2023 3:33 AM TERRAZZO ROLLER 06/22/2023 8:01 AM TERRAZZO ROLLER Dontrell Zapata Jr., MD LAB - PATHOLOGY/CYTOLOG Y ORDERABLES Final Result DERMATOPATHOLOGY LABORATORY [facility] - Department of Dermatology [address], [address] [phone] documented in this encounter Visit Diagnoses Not on filedocumented in this encounter Care Teams Pit Operator Relationship Specialty Start Date End Date Quan Stanley MD [address] [place] [phone] PCP - General Internal Medicine 01/20/15 documented as of this encounter
--- OUTSIDE RECORDS SUMMARY | 2025-05-18 08:47 | XMS_ITS | Encounter Summary ---
Author Organization [facility] Address [address] [facility] [place] [address] Care Team Providers Care Nicu Rn Name Role Phone Quan Stanley MD Primary Care Provider + Reason for Visit * Reason Onset Date Comments Question 11/05/2023 Encounter Details Date Type Department Care Team (Late st Contact Info) Description 11/05/2023 Telephone [facility] - Orthopedic Surgery [address] [place] [address] Fran Maciel MD [address] [facility] [address] [place] [address] Question Social History Tobacco Use Types Packs/Day Years [...] on file 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 Answer Date of Assessment Author Yes 02/08/2021 12:20 PM CDT Di Longo RN * Does person have difficulty doing errands alone? Answer Date of Assessment Author Yes 02/08/2021 12:20 PM CDT Di Longo RN documented as of this encounter Mental Status * Does person have difficulty concentrating/remembering/making decisions? Answer Entry Date Author No 02/08/2021 12:20 PM CDT Di Longo RN documented in this encounter Miscellaneous Notes * Telephone Encounter - Hannah Lundberg MA - 11/05/2023 11:24 AM CDT Patient called in asking if she still need to take her amoxicillin for her dentist appt. Per Dr. Raheem Nino's MA I advised the patient she did not need to keep taking it since it been 2 years, Patient requested a letter stating she did not need to continue taking the amoxicillin so she can take it to her dentist. Please advise. documented in this encounter Plan of Treatment Not on file documented as of this encounter Visit Diagnoses Not on filedocumented in this encounter Care Teams Nicu Rn Relationship Specialty Start Date End Date Quan Stanley MD [facility] [phone] PCP - General Internal Medicine 01/20/15 documented as of this encounter
--- OUTSIDE RECORDS SUMMARY | 2025-05-18 08:47 | XMS_ITS | Encounter Summary ---
Author Organization [facility] Address [address] [facility] [place] [address] Care Team Providers Care Laborer Livestock Name Role Phone Quan Stanley MD Primary Care Provider + Encounter Details Date Type Department Care Team (Late st Contact Info) Description 03/06/2024 Lab Requisition [facility] - DermPath Lab [address] [facility], [place] [address] Missy Woods, DO [address] [facility] [address] [place] [address] Social History Tobacco Use Types Packs/Day Years Used Date Smoking Tobacco: Never Passive Smoke Exposure: Yes Smokeless Tobacco: Never Alcohol Use Standard Drinks/Week Comments No 0 (1 standard drink = 0.6 oz pur e alcohol) PHQ-2 Answer Date Recorded Patient Health Questionnaire-2 Score 1 02/22/2024 Comments No Sex and Gender Information Value Date Recorded Sex Assigned at Not on file 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
--- OUTSIDE RECORDS SUMMARY | 2025-05-18 08:47 | XMS_ITS | Encounter Summary ---
Author Organization [facility] Address [address] [facility] 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 Gender Identity Not on file Sexual Orientation [...] Di Longo RN documented in this encounter Plan of Treatment Not on file documented as of this encounter Procedures Procedure Name Priority Date/Time Associated Diagnosis Comments DERMATOPATHOLOGY Routine 10/16/2024 8:45 AM CDT Neoplasm of uncertain behavior of skin documented in this encounter Results * DERMATOPATHOLOGY (10/16/2024 8:45 AM CDT) Case Report Dermatopathology Report Case: [id number] Authorizing Provider: Ajay Guzman MD Collected: 10/16/2024 08:45 AM Ordering Location: [facility] - Received: 10/20/2024 06:26 AM DermPath Lab Pathologist: Kelsey Diaz MD Specimen: Skin, mid crown 3:50 PM CDT DERMATOPATHOLOGY LABORATORY Final Diagnosis Specimen A. SKIN, mid crown: SQUAMOUS CELL CARCINOMA IN SITU (AHN'S DISEASE) (D04.4) OVERLYING CUTANEOUS HORN (L85.8) 3:50 PM CDT DERMATOPATHOLOGY LABORATORY at 1550 CDT Clinical History SCC 3:50 PM CDT DERMATOPATHOLOGY LABORATORY Gross Description Specimen A: Received is one formalin filled container labeled with the patient's name and designated mid crown. The specimen consists of a shave biopsy measuring 7x6x3 mm. Jar 0. 3:50 PM CDT DERMATOPATHOLOGY LABORATORY Microscopic Description Specimen A. SKIN, mid crown: The epidermis shows parakeratosis, full thickness disorderly maturation of keratinocytes, mitoses at different levels, and dyskeratotic cells. There is a column of marked compact hyperkeratosis. 3:50 PM CDT DERMATOPATHOLOGY LABORATORY Disclaimer An external and internal positive and negative controls are appropriate for the histochemical, immunohistochemical and immunofluorescence stain(s) in this case (if any), except where stated explicitly. The performance characteristics of the stain(s) cited in this report were developed and its performance characteristic determined by the Dermatopathology Laboratory at [facility], directed by Dr. Jules Diaz. These tests need not be, and therefore are not, approved by the [place] Food and Drug Administration. The tests are used for clinical purposes. Billing Codes Specimen Charges Stain Charges 02421 1 3:50 PM CDT DERMATOPATHOLOGY LABORATORY Embedded Images 3:50 PM CDT DERMATOPATHOLOGY LABORATORY Pathology/Cytolo gy TISSUE SPECIMEN FROM SKIN / Unknown 10/16/2024 8:45 AM CDT 10/20/2024 6:26 AM CDT Ajay Guzman MD LAB - PATHOLOGY/CYTOLOGY ALYSSAE ROSE Final Result DERMATOPATHOLOGY LABORATORY [facility] - Department of Dermatology [facility] [address] [place] [address], [address] [phone] documented in this encounter Visit Diagnoses Diagnosis Neoplasm of uncertain behavior of skin documented in this encounter Care Teams Form Presser Relationship Specialty Start Date End Date Quan Stanley MD [address] [place] [phone] PCP - General Internal Medicine 01/20/15 documented as of this encounter
--- OUTSIDE RECORDS SUMMARY | 2025-05-18 08:47 | XMS_ITS | Encounter Summary ---
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 The specimen consists of a shave biopsy measuring 8x6x1 mm. Jar 0. 4 5:18 PM CDT DERMATOPATHOLOGY LABORATORY Microscopic Description Specimen A. SKIN, right cheek: There is focal parakeratosis. The lower half of the epidermis shows disorderly maturation of keratinocytes with nuclear pleomorphism. Focally there is a suprabasilar cleft with acantholytic cells. The epidermis is focally eroded. 4 5:18 PM CDT DERMATOPATHOLOGY LABORATORY Disclaimer An external and internal positive and negative controls are appropriate for the histochemical, immunohistochemical and immunofluorescence stain(s) in this case (if any), except where stated explicitly. The performance characteristics of the stain(s) cited in this report were developed and its performance characteristic determined by the Dermatopathology Laboratory at [facility], directed by Dr. Jules Diaz. These tests need not be, and therefore are not, approved by the [place] Food and Drug Administration. The tests are used for clinical purposes. Billing Codes Specimen Charges Stain Charges 06067 1 4 5:18 PM CDT DERMATOPATHOLOGY LABORATORY Embedded Images 4 5:18 PM CDT DERMATOPATHOLOGY LABORATORY Pathology/Cytolog y TISSUE SPECIMEN FROM SKIN / Unknown 03/06/2024 03/07/2024 10:56 AM CDT us Missy Woods DO LAB - PATHOLOGY/CYTOLOGY ORDERABLES Final Result DERMATOPATHOLOGY LABORATORY [facility] - Department of Dermatology [address], [address] [phone] documented in this encounter Visit Diagnoses Not on filedocumented in this encounter Care Teams Tile Ditcher Relationship Specialty Start Date End Date Quan Stanley MD [address] [place] [phone] PCP - General Internal Medicine 01/20/15 documented as of this encounter
--- OUTSIDE RECORDS SUMMARY | 2025-05-18 08:47 | XMS_ITS | Encounter Summary ---
Author Organization [facility] Address [address] [facility] [place] [address] Care Team Providers Care President [employer] Name Role Phone Quan Stanley MD Primary Care Provider + Reason for Visit * Reason Onset Date Comments Refill Request 01/19/2023 Encounter Details Date Type Department Care Team (Late st Contact Info) Description 01/19/2023 Telephone [facility] - Centralized Scheduling [address] [place] [phone] Fran Maciel MD [address] [facility] [address] [place] [address] Refill Request Social History Tobacco Use Types Packs/Day Years Used Date Smoking Tobacco: Passive Smo ke Exposure - Never Smoker Smokeless Tobacco: Never Alcohol Use Standard Drinks/Week Comments No 0 (1 standard drink = 0.6 oz pur e alcohol) Comments No Sex and Gender Information Value Date Recorded Sex Assigned at Not on file 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 Any questions please reach out to pt at [phone]. Verified Pharmacy with pt already. documented in this encounter Plan of Treatment Not on file documented as of this encounter Visit Diagnoses Not on filedocumented in this encounter Care Teams President [employer] Relationship Specialty Start Date End Date Quan Stanley MD [address] [place] [phone] PCP - General Internal Medicine 01/20/15 documented as of this encounter
--- OUTSIDE RECORDS SUMMARY | 2025-05-18 08:47 | XMS_ITS | Clinical Summary ---
Author Organization [facility] Address [address] [place] [address] Care Team Providers Care Segment Producer Name Role Phone Quan Stanley MD Primary Care Provider + Source Comments [facility],non-owned Affiliates and Associated Physician Practices is amultiple site organization consisting of ambulatory clinics and hospital sitesin [place], [place], [place] and [place]. This disclosure is being madepursuant to the Care Everywhere program and may not contain all information available regarding this patient. Last updated 18.[facility] Allergies No known active allergies Medications * Be aware that medications may not be up to date on this document. Alwaysverify current medications with the patient. atorvastatin (LIPITOR) 10 MG tablet 1 (one) tablet once daily 9 Active vitamin D3 (CHOLECALCIFERO L) (25 MCG) 1000 UNIT capsule Take 1 (one) capsule by mouth every 24 hours Active aspirin (ASPIRIN) 81 MG chew tablet Take 1 (one) tablet by mouth 2 times daily 70 tablet 1 Active multivitamin daily tablet Take 1 (one) tablet by mouth daily with food Active acetaminophen CR (Tylenol Arthritis Pain) 650 MG tablet Take 1 (one) tablet by mouth every 8 hours as needed for Pain Active Other Asper cream Active diclofenac sodium (Voltaren) 1 % gel APPLY 4 GRAMS TOPICALLY TO THE AFFECTED AREA FOUR TIMES DAILY 3 Active valACYclovir (Valtrex) 1 GM tablet Take 1 (one) tablet by mouth once daily 4 Active Active Problems Problem Noted Date Diagnosed Date Hypercholesterolemia 06/03/2023 06/03/2023 Nonalcoholic steatohepatitis (GONZALEZ) 06/03/2023 06/03/2023 Osteopenia 06/03/2023 06/03/2023 Primary osteoarthritis of left hip 02/08/2021 Myositis 07/04/2016 06/03/2023 Atherosclerosis of aorta 05/23/2016 023 Colon polyp, hyperplastic 03/04/2015 History of malignant neoplasm of breast 06/07/20 05 06/03/2023 Osteoporosis 09/19/2004 06/03/2023 Immunizations Immunization Administration Dates Next Due Covid Pfizer primary monoval ent 12+ yr 0.3mL Purple cap 09/05/2020,08/13/2020 Family History Medical History Relation Name Comments Cancer - Breast Maternal Aunt Cancer - Breast Paternal Aunt Cancer - Ovarian Neg Hx Relation Name Status Comments Maternal Aunt Paternal Aunt Social History Tobacco Use Types Packs/Day Years Used Date Smoking Tobacco: Never Passive Smoke Exposure: Yes Smokeless Tobacco: Never Tobacco Cessation:Counseling Given: Not Answered Alcohol Use Standard Drinks/Week Comments No 0 (1 standard drink = 0.6 oz pur e alcohol) PHQ-2 Answer Date Recorded Patient Health Questionnaire-2 Score 1 02/22/2024 Comments No Sex and Gender Information Value Date Recorded Sex Assigned at Not on file Legal Sex Female 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 Gender Identity Not on file Sexual Orientation Not on file Last Filed Vital Signs Vital Sign Reading Time Taken Comments Blood Pressure 123/62 02/09/2021 8:43 AM CDT Pulse 105 02/09/2021 8:43 AM CDT Temperature 36.4 C (97.5 F) 02/09/2021 8:43 AM CDT Respiratory Rate 18 02/09/2021 8:43 AM CDT Oxygen Saturation 98% 02/09/2021 8:43 AM CDT Inhaled Oxygen Concentration - - Weight 49.9 kg (110 lb) 05/25/2023 10:47 AM 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 Height 158.1 cm (5' 2.25) 02/24/2021 10:50 AM C DT Body Mass Index 19.96 02/24/2021 10:50 AM CDT Plan of Treatment Health Maintenance Due Date Last Done Comments MEDICARE AWV 12 MONTHS 1942 DTAP/TDAP/TD VACCINES (1 - Tdap) 1961 PNEUMOCOCCAL VACCINE 50+ (1 of 1 - PCV) 1992 ZOSTER VACCINE (1 of 2) 1992 Respiratory Syncytial Virus (RSV) Vaccine Pt: or over 60 yrs (1 - 1-dose 75+ series) 2017 DEPRESSION SCREENING 06/18/2024 02/22/2024, 05/25/2023 COVID-19 VACCINE (3 - 2024-2 6 season) 2025 09/05/2020, 08/13/2020 INFLUENZA VACCINE (#1) 2025 03/19/2023 BONE DENSITY TESTING Completed 05/12/2019, 12/29/2016 HEPATITIS B VACCINE Aged Out No longe r eligible based on patient's age to complete this topic HIB VACCINE Aged Out No longer eligi ble based on patient's age to complete this topic HPV VACCINE Aged Out No longer eligi ble based on patient's age to complete this topic MENINGOCOCCAL (Group B) VACCINE SHARED DECISION-MAKING Aged Out No longer eligible based on patient's age to complete this topic MENINGOCOCCAL GROUPS A/C/Y/W VACCINE Aged Out No longer eligible b ased on patient's age to complete this topic Medical Devices Implanted Type Area Dry Can Tender Device Identifier Shelf Expiration Date Model / Serial / Lot Shell Actb 52mm Mlhl R3 Implanted:Qty : 1 on 02/08/2021 by Fran Maciel MD at [facility] Left: Hip [employer] 01/26/2029 [id number] / / [id number] Screw 6.5mm 25mm Unv Ft Hip Actb Canc Implanted:Qty : 1 on 02/08/2021 by Fran Maciel MD at [facility] Left: Hip [employer] 10/02/2028 [id number] / / [id number] Liner Actb R3 0d 52mm 36mm Xlpe Hip Flxb Implanted:Qty : 1 on 02/08/2021 by Fran Maciel MD at [facility] Left: Hip [employer] 01/04/2031 [id number] / / [id number] Femoral Component Implanted:Qty : 1 on 02/08/2021 by Fran Maciel MD at [facility] Left: Hip [employer] [id number] 2028 [id number] / / [id number] Screw 6.5mm 25mm Hip Actb Canc Sphrcl Implanted:Qty : 1 on 02/08/2021 by Fran Maciel MD at [facility] Left: Hip [employer] 09/21/2030 [id number] / / [id number] Femroal Hea D Implanted:Qty : 1 on 02/08/2021 by Fran Maciel MD at [facility] Left: Hip [employer] [id number] 01/27/2030 [id number] / / [id number] Procedures Procedure Name Priority Date/Time Associated Diagnosis Comments DEXA BONE DENSITY AXIAL SKELETON Routine 05/12/2019 1:00 PM 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 Osteopenia, unspecified location from Last 3 Months or Most Recently Relevant to Health Maintenance Results * DEXA BONE DENSITY AXIAL SKELETON (05/12/2019 1:00 PM 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 This does put the patient increased risk for osteoporotic fractures. One may wish to begin therapeutic intervention. Continued follow-up is recommended. Reading Radiologist: Isac Kincaid MD on 05/12/2019 at 1:17 PM Narrative 05/12/2019 1:17 PM 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 Bone densitometry INDICATION: Osteopenia. FINDINGS: The bone mineral density of the lumbar spine is 1.045 g/sq cm. This gives a T score of -1.1. This is in the mildly osteopenic range. The bone mineral density of the left femoral neck is 0.750 g/sq cm. This gives a T score of -2.1 which is in the severely osteopenic range. The bone marrow density of the total left hip is 0.923 g/sq cm. This gives a T score of -0.7. This is within normal range but is likely elevated due to arthritic changes about the hip. The bone mineral density of the right femoral neck is 0.735 g/sq cm. This gives a T score of -2.2 which is in the severely osteopenic range. The bone marrow density of the right total hip is 0.945 g/sq cm. This gives a T score of -0.5. This is within normal range but may be elevated due to arthritic changes. FRAX Assessment: The probability of a major osteoporotic fracture is 21.2% within the next 10 years. The probability of a hip fracture is 6% within the next 10 years. Procedure Note Isac Kincaid MD - 05/12/2019 Bone densitometry INDICATION: Osteopenia. FINDINGS: The bone mineral density of the lumbar spine is 1.045 g/sq cm. This gives a T score of -1.1. This is in the mildly osteopenic range. The bone mineral density of the left femoral neck is 0.750 g/sq cm. This gives a T score of -2.1 which is in the severely osteopenic range. The bone marrow density of the total left hip is 0.923 g/sq cm. This gives a T score of -0.7. This is within normal range but is likely elevated due to arthritic changes about the hip. The bone mineral density of the right femoral neck is 0.735 g/sq cm. This gives a T score of -2.2 which is in the severely osteopenic range. The bone marrow density of the right total hip is 0.945 g/sq cm. This gives a T score of -0.5. This is within normal range but may be elevated due to arthritic changes. FRAX Assessment: The probability of a major osteoporotic fracture is 21.2% within the next 10 years. The probability of a hip fracture is 6% within the next 10 years. IMPRESSION Osteopenia of the lumbar spine, and both femoral necks. This does put the patient increased risk for osteoporotic fractures. One may wish to begin therapeutic intervention. Continued follow-up is recommended. 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
--- NOTE | 2025-05-18 08:52 | ED.LOWEXIN ---
HPI - Extremity Injury (Lower) General Chief Complaint: Extremity Injury, Lower Stated Complaint: L Leg Source: patient and RN notes reviewed Mode of arrival: ambulatory Limitations: no limitations Related Data Home Medications ?Medication ?Instructions ?Recorded ?Confirmed ?Last Taken ?Type atorvastatin 10 mg tablet mg 05/18/25 Unknown History Allergies Allergy/AdvReac Type Severity Reaction Status Date / Time No Known Allergies Allergy Verified 05/18/25 08:49 Review of Systems Review of Systems: CONSTITUTIONAL: Denies malaise, chills, sweats, or fever. SKIN: Denies rash or itching, open skin, laceration, abrasion, redness, warmth, swelling. MUSCULOSKELETAL: Reports left knee pain NEUROLOGIC: Denies numbness, weakness All systems reviewed & are unremarkable except as noted in HPI and below PMFSH Comments At time of signature, agree with nursing past medical, surgical, social and family history. There is no relevant family history pertinent to the presenting complaint Exam Narrative: GENERAL: Well-appearing, well-nourished, and in no acute distress. HEAD: Normocephalic, atraumatic. EYES: PERRLA, conjunctivae clear NECK: Supple. CHEST: Speaks in full sentences. No respiratory distress. HEART: Regular rate and rhythm. Normal and equal peripheral pulses. EXTREMITIES: [Xxx] has grossly normal strength and sensation, grossly normal range of motion. No edema or ecchymosis. 5/5 strength with [xxx] flexion and extension. Normal sensation with sensitivity to light touch and pain. No point tenderness. No open wounds, no skin tenting, no devitalized tissue or atrophy, no trophic changes, no obvious deformity, alignment normal, nearby joints and structures intact. Distal pulses palpable and equal bilaterally, skin warm, dry, pink. Capillary refill less than 3 seconds. SKIN: Warm, dry, no rash. NEURO: Alert and oriented x3. PSYCH: Normal mood and affect Course Course Emergency Course: Patient is aware of diagnosis, understands and agrees to treatment plan. Anticipatory guidance given. Patient agrees to follow-up as directed and is aware of reasons to seek care at the emergency department. Portions of this record may have been created with voice recognition software Level of Care: Express Care Visit Vital Signs Vital signs: Vital Signs Temperature 97.9 F 05/18/25 08:46 Pulse Rate 84 05/18/25 08:46 Respiratory Rate 20 05/18/25 08:46 Blood Pressure 150/66 H 05/18/25 08:46 Pulse Oximetry 99 05/18/25 08:46 Oxygen Delivery Room Air 05/18/25 08:46 Temperature 97.9 F 05/18/25 08:46 Pulse Rate 84 05/18/25 08:46 Respiratory Rate 20 05/18/25 08:46 Blood Pressure 150/66 H 05/18/25 08:46 Pulse Oximetry 99 05/18/25 08:46 Oxygen Delivery Room Air 05/18/25 08:46 Reviewed. MDM - Extremity Injury (Lower) MDM Narrative Medical decision making narrative: The patient was evaluated by myself in the [facility] care. History is obtained from patient who is an independent historian and physical exam was performed.? Available medical records were reviewed at this time. ? Exam findings show no acute concerns or changes; patient is non-toxic appearing and is in no distress. Patient is appropriate for outpatient treatment and follow-up. ? I have evaluated and discussed social determinants of health with the patient that could potentially impact subsequent diagnosis and treatment plans. ? Patients injury and pain is consistent with musculoskeletal etiology. No signs of neurological or vascular compromise on exam. Compartments and tissues are soft without signs of compartment syndrome. Pain is felt appropriate for further evaluation on an outpatient basis. Critical Care Time Critical Care Time Critical Care Time: No Discharge Plan Discharge Patient Language: Upper Sorbian Prescriptions: No Action atorvastatin 10 mg tablet Follow-up/Referrals: UNKNOWN,DOCTOR [Primary Care Provider]
--- NOTE | 2025-05-18 09:05 | ED_ITS ---
HPI - Skin/Abscess/Foreign Bdy General Chief complaint: Extremity Injury, Lower Stated complaint: L Leg Time Seen by Provider: 05/18/25 08:58 Source: patient and RN notes reviewed Mode of arrival: ambulatory Limitations: dementia History of Present Illness HPI narrative: 84-year-old female presents with concern for a painful wound on her leg. Reports about 1 month ago she thinks she cut herself shaving, she had a scab that bothered her for some time. Reports she would accidentally catch it on things. Reports over the last few days it has become red, painful, swollen. Use Vaseline and Neosporin without relief. MD complaint: other (Redness) Related Data Home Medications ?Medication ?Instructions ?Recorded ?Confirmed ?Last Taken ?Type atorvastatin 10 mg tablet mg 05/18/25 Unknown History Allergies Allergy/AdvReac Type Severity Reaction Status Date / Time No Known Allergies Allergy Verified 05/18/25 08:49 Review of Systems Review of Systems: CONSTITUTIONAL: Denies malaise, chills, sweats, or fever. EYES: Denies redness, or discharge. ENT: Denies rhinorrhea, congestion, swollen lips, swollen tongue CARDIOVASCULAR: Denies chest pain, palpitations, or edema. RESPIRATORY: Denies cough or dyspnea. GASTROINTESTINAL: Denies abdominal pain, nausea, vomiting SKIN: Reports painful wound on her left lower leg. Denies purulent drainage, vesicles, bullae, numbness, pain beyond proportion MUSCULOSKELETAL: Denies joint pain or myalgia. NEUROLOGIC: Denies headache. All systems reviewed & are unremarkable except as noted in HPI and below PMFSH Comments At time of signature, agree with nursing past medical, surgical, social and family history. There is no relevant family history pertinent to the presenting complaint Exam Narrative: GENERAL: Well-appearing, well-nourished, and in no acute distress. HEAD: Normocephalic, atraumatic. EYES: PERRLA, conjunctivae clear ENT: Mucous membranes moist. NECK: Supple. No lymphadenopathy CHEST: Clear to auscultation. No respiratory distress. HEART: Regular rate and rhythm. SKIN: Warm, dry. 1.5 cm round raised erythematous area with skin colored plaque surrounded by approximately 1 cm of erythema without induration. No fluctuation or drainage noted. No vesicles, bullae, necrosis, ecchymosis, crepitus noted. NEURO: Alert and oriented x3. PSYCH: Normal mood and affect Course Course Emergency Course: Patient is aware of diagnosis, understands and agrees to treatment plan. Anticipatory guidance given. Patient agrees to follow-up as directed and is aw are of reasons to seek care at the emergency department. Portions of this record may have been created with voice recognition software Level of Care: Express Care Visit Vital Signs Vital signs: Vital Signs Temperature 97.9 F 05/18/25 08:46 Pulse Rate 84 05/18/25 08:46 Respiratory Rate 20 05/18/25 08:46 Blood Pressure 150/66 H 05/18/25 08:46 Pulse Oximetry 99 05/18/25 08:46 Oxygen Delivery Room Air 05/18/25 08:46 Temperature 97.9 F 05/18/25 08:46 Pulse Rate 84 05/18/25 08:46 Respiratory Rate 20 05/18/25 08:46 Blood Pressure 150/66 H 05/18/25 08:46 Pulse Oximetry 99 05/18/25 08:46 Oxygen Delivery Room Air 05/18/25 08:46 Reviewed. MDM - Skin/Abscess/Foreign Bdy MDM Narrative Medical decision making narrative: I evaluated this in the [facility]. History is obtained from patient who is an independent historian and physical exam was performed.? Available medical records were reviewed. ? Exam findings and relevant testing show no acute concerns or changes; patient is non-toxic appearing and is in no distress. Does not appear at this time to be erythema multiforme, bullous, SJS, TEN; no evidence at this time to suggest RMSF, NSTI, endocarditis or Lyme disease; patient looks well, nontoxic and is tolerating oral intake; no neurologic signs or symptoms; no headache, photophobia or neck pain; afebrile.? Patient does not have history of of penetrating trauma, laceration, blunt trauma, recent surgery, immunosuppression, malignancy, obesity, alcoholism, corticosteroid use.? Discussed the importance of follow-up, patient agrees; question, cellulitis versus necrotizing soft tissue infection versus abscess.?? Patient is appropriate for outpatient treatment and follow-up. Critical Care Time Critical Care Time Critical Care Time: No Discharge Plan Discharge Clinical Impression: Infected wound Patient Disposition: Home Condition: Stable Instructions: Antibiotic Form, Wound Infection (ED) Additional Instructions: Please follow up with your Primary Care Doctor within 1 week- call for an appointment. Rest and elevate affected area; apply moist heat 3-4 times daily for 10-15 minutes. Take Motrin or Tylenol per package direction for pain. Please take Antibiotics as directed. Apply Aquaphor or Vaseline and cover with a bandage. Do not pick or scratch at the area. If you experience any worsening redness, swelling, streaking (red lines), fever or chills please go to the ER Patient Language: Vietnamese Prescriptions: New cephalexin 500 mg capsule 500 mg PO QID 10 Days Qty: 40 0RF No Action atorvastatin 10 mg tablet Follow-up/Referrals: UNKNOWN,DOCTOR [Primary Care Provider] Time of Disposition: 09:08
== END 2025-05-18 09:13 | disposition home or self-care (01) ==
PROVIDERS: Emergency Provider Nurse Practitioner
DX: S81.802A Unspecified open wound, left lower leg, initial encounter (principal); L08.9 Local infection of the skin and subcutaneous tissue, unspecified; X58.XXXA Exposure to other specified factors, initial encounter; E78.00 Pure hypercholesterolemia, unspecified; M19.90 Unspecified osteoarthritis, unspecified site; Z85.3 Personal history of malignant neoplasm of breast; Z90.12 Acquired absence of left breast and nipple; Z92.21 Personal history of antineoplastic chemotherapy; Z92.3 Personal history of irradiation
CPT/HCPCS: 99203; G0463